=== PATIENT | female | born 1960 | race Caucasian/White ===

== ENCOUNTER 2023-11-28 19:32 | Emergency (ER) | payer BC, SELFPAY ==
[2023-11-28 19:43] VITALS: BP 139/70; PULSE 102; RESP 18; TEMP 37.1; O2SAT 98
--- NOTE | 2023-11-28 20:04 | ED.SKABFB ---
HPI - Skin/Abscess/Foreign Bdy General Chief complaint: Skin/Abscess/Foreign Body Stated complaint: Right Finger Irritation Time Seen by Provider: 11/28/23 20:05 Source: patient Mode of arrival: ambulatory Limitations: no limitations History of Present Illness HPI narrative: 63 y/o female presented for c/o redness surrounding a cut on the right little finger. Onset 2 days. Unsure of how she cut the finger. Pt states she has neuropathy and is unable to deterine if she has pain. Says the redness is worsening. Reports some pus came out yesterday. Related Data Home Medications Medication Instructions Recorded Confirmed carvedilol 12.5 mg tablet mg 11/28/23 11/28/23 gabapentin 400 mg capsule mg 11/28/23 glimepiride 4 mg tablet mg 11/28/23 levothyroxine 100 mcg tablet mcg 11/28/23 spironolactone 25 mg tablet mg 11/28/23 valsartan 40 mg tablet mg 11/28/23 venlafaxine 150 mg mg PO 11/28/23 capsule,extended release 24 hr Allergies Allergy/AdvReac Type Severity Reaction Status Date / Time No Known Allergies Allergy Verified 11/28/23 19:36 Review of Systems Review of Systems: CONSTITUTIONAL: Denies body aches, fever, chills, or sweats. CARDIOVASCULAR: Denies chest pain, palpitations, or edema. RESPIRATORY: Denies cough or dyspnea. SKIN: per HPI, denies streaking or fever MUSCULOSKELETAL: Denies back pain, joint pain, or myalgia. NEUROLOGIC: Denies headache, numbness, tingling, or weakness. [facility] Past Medical History Medical History (Updated 11/29/23 @ 08:27 by Shantal Hanks APRN) Diabetes HTN (hypertension) Hypothyroid Neuropathy Comments At time of signature, I have reviewed and agree with nursing past medical, surgical, social and family history unless otherwise noted. Please see nursing chart for further information. There is no relevant family history pertinent to the presenting complaint Exam Narrative: GENERAL: Well-appearing ENT: Mucous membranes moist. Oropharynx without edema, erythema or lesions. CHEST: Clear to auscultation. HEART: Regular rate and rhythm. SKIN: Warm, dry. Right 5th digit erythema and mild swelling of middle phalanx, surrounding <0.5cm linear scabbed abrasion to middle phalanx, no fluctuance or active drainage. nontender but reports neuropathy, CMS intact. cap refill < 3 seconds. NEURO: Alert and oriented x3. Course Course Emergency Course: Patient is aware of diagnosis, understands and agrees to treatment plan. Anticipatory guidance given. Patient agrees to follow-up as directed and is aware of reasons to seek care at the emergency department. Portions of this record may have been created with voice recognition software Level of Care: Express Care Visit Vital Signs Vital signs: Vital Signs Temperature 98.8 F 11/28/23 19:43 Pulse Rate 102 H 11/28/23 19:43 Respiratory Rate 18 11/28/23 19:43 Blood Pressure 139/70 11/28/23 19:43 Pulse Oximetry 98 11/28/23 19:43 Oxygen Delivery Room Air 11/28/23 19:43 Temperature 98.8 F 11/28/23 19:43 Pulse Rate 102 H 11/28/23 19:43 Respiratory Rate 18 11/28/23 19:43 Blood Pressure 139/70 11/28/23 19:43 Pulse Oximetry 98 11/28/23 19:43 Oxygen Delivery Room Air 11/28/23 19:43 Reviewed MDM - Skin/Abscess/Foreign Bdy MDM Narrative Medical decision making narrative: Discussed physical exam findings, reviewed Rx. Advised supportive measures and signs/symptoms to go to the ER. Pt is appropriate for outpt treatment and f/u. Differential Diagnosis Differential diagnosis: Likely abscess of skin or subcutaneous tissue, urticaria, herpes zoster, cellulitis, eczema, impetigo and contact dermatitis Discharge Plan Discharge Clinical Impression: Cellulitis Patient Disposition: Home, Self-Care Condition: Stable Instructions: Antibiotic Form, Cellulitis (ED) Additional Instructions: Cleanse with warm soapy water Warm compresses at least 4 times a day to the
== END 2023-11-28 20:21 | disposition home or self-care (01) ==
PROVIDERS: Emergency Provider Nurse Practitioner Family
DX: L03.011 Cellulitis of right finger (principal); I10 Essential (primary) hypertension; E03.9 Hypothyroidism, unspecified; E11.9 Type 2 diabetes mellitus without complications; Z79.899 Other long term (current) drug therapy
CPT/HCPCS: 99203; G0463